=== PATIENT | male | born 1925 | race Caucasian/White ===

== ENCOUNTER 2017-03-25 23:56 | Emergency (ER) | payer MEDICARE ==
[~2017-03-25] VITALS: Ht 180.3 cm; Wt 77.3 kg
[2017-03-26 00:04] VITALS: BP 137/58; PULSE 69; RESP 23; O2SAT 100
--- NOTE | 2017-03-26 00:16 | ED.REPORT ---
HPI-Hip/Pelvis Prob/Inj Date of Service Mar 26, 2017 ED Provider: Ilia Lauren MD An 89 year old male with a history of hypertension and diabetes is brought to the ED via EMS due to right hip pain. The pt fell in the house this morning and again later this evening. He did not hit his head and denies loss of consciousness. The pt began complaining of right hip pain after the second fall , leading his family to be concerned about a fractured or dislocated hip. Nursing Notes Stated Complaint: GLF Chief Complaint: Extremity Trauma Nursing Notes Reviewed: Yes Allergies: Uncoded Allergies: PCN (Allergy, Unknown, 03/26/17) General Time Seen by Provider: 00:16 Chief Complaint Hip pain right Hx Obtained From: Patient, Other family..., EMS Arrived By: Ambulance Onset Occurred: 1 - 4 hours ago Symptom Duration: Since onset Recent Healthcare: No recent hospitalization, Recent doctor visit Similar Sx Previous: No Past Medical History Past Medical History hypertension constipation diabetes Past Surgical History none reported Smoking History Unknown if Ever Smoker Social History Other Social History: Good social support Ambulatory Status Cane Review of Systems Musculoskeletal: Reports: Joint pain (right hip) Skin: Denies Rash Neurologic: Denies: Change LOC Complete sys rev & neg: except as marked. Respiratory: Denies: Non-productive cough, Shortness of breath Cardiovascular: Denies: Chest pain GI: Denies: Abdominal pain Physical Exam Initial Vital Signs Vital Signs (First) Date Time Temp Pulse Resp B/P Pulse Ox O2 Delivery O2 Flow Rate FiO2 03/26/17 00:04 36.8 69 23 137/58 100 Room Air Initial VS: Reviewed Lower Extremity / Pelvis / MS: Atraumatic, Full range of motion good range of motion of right hip with minimal resistance to flexion and extension tender over lateral trochanter contusion 2+ edema bilaterally, chronic General/Constitutional: Awake, Alert mildly confused Head / Eyes: Atraumatic, Normocephalic, PERRL, EOMI Neck: Atraumatic, Supple, Full range of motion Respiratory / Chest: Atraumatic, Breath sounds NL, Breath sounds = bilat, No respiratory distress Cardiovascular: Heart rate NL, Regular rhythm, Heart sounds NL Back: Atraumatic, Full range of motion Skin: Atraumatic, Color NL, No rash, Warm, Dry Neurologic Neurologic: Oriented X3, Speech NL, No motor deficits, No sensory deficits ENT: Atraumatic, Airway patent, Mucous membranes moist Upper Extremity / MS: Atraumatic, Full range of motion Psychiatric: Affect NL, Mood NL Interpretation & Diagnostics Interpretation & Diagnostics: Hip/Pelvis X-Ray: no fracture no acute findings Lab Results Interpretation Test 03/26/17 00:00 Hold Purple Top Tube Received (Received) Hold Blue Top Tube Received (Received) Hold [place] Top Tube Received (Received) Re-Eval/Medical Decision Med Decision/Clinical Course 89-year-old presents after a couple of low level falls at home. Initially he had no complaints, but later complained of right hip pain. Exam is baseline unremarkable with good range good rotation and minimal apparent pain. He seems to be tender over the trochanter. X-rays are negative for fracture. He is up and walking with a walker and appears to be at baseline as far as gait. Discharged now in stable condition for follow-up with PCP. Source of Hx: Old records Re-Evaluation/Progress : Time of Eval: 01:20 Patient Status: Condition improved Re-Evaluation/Progress Note: Pt rechecked, who has passed his road test. The diagnosis and plan for discharge are discussed. The pt understands and agrees with the plan. All questions are addressed at this time. Counseled Regarding: Diagnosis, Lab results, Need for follow-up, When/why to return to ED Discharge & Departure Impression: Primary Impression: Contusion, hip Encounter type: initial encounter Laterality: right Qualified Code: S70.01XA - Contusion of right hip, initial encounter Disposition: Home Discharge Condition All VS Reviewed: Yes Condition: Stable Patient Instructions: Contusions in Adults (ED) Additional Instructions: Encourage use of his walker or cane or walking sticks at all times. Follow-up with your doctor in the office. Return if any immediate issues over the weekend. Tylenol as needed for pain. Referrals: Dallin Manning MD (PCP) Scribe Attestation Portions of this note were transcribed by Jadyn Menchaca. I, Dr. Lauren personally performed the history, physical exam and medical decision-making; I reviewed and confirmed the accuracy of the information in the transcribed note. Signed by: Timbo Mcqueen, 03/26/2017 and 0135. copies to: Dallin Manning MD, Christopher W MD Mar 26, 2017 00:16 JADYN MENCHACA Mar 26, 2017 01:12
[2017-03-26 01:25] VITALS: BP 147/67; PULSE 68; RESP 18; O2SAT 98
--- NOTE | 2017-03-26 12:03 | DRSVH ---
PROCEDURE: X-RAY PELVIS W/LAT HIP (RT) ([id number]) INDICATIONS: fall, pain TECHNIQUE: AP pelvis with lateral view(s) of the right hip(s). COMPARISON: None. FINDINGS: Bones: No fractures or dislocations. Pelvic ring appears intact. No suspicious bony lesions. 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 Soft tissues: The visualized bowel gas pattern is normal. No suspicious soft tissue calcifications. Surgical clips in scrotum. IMPRESSION: No fracture or dislocation. If clinical symptoms persist or clinical suspicion for patho logy is high, a repeat examination in 7-10 days, or advanced imaging such as CT or MRI is suggested f or further evaluation. Dictated by: Maggie Zimmer M.D. on 03/26/2017 at 11:59 Approved by: Maggie Zimmer M.D. on 03/26/2017 at 12:00
== END 2017-03-26 01:25 | disposition home or self-care (01) ==
LOC: SED 23:56
DX: S70.01XA Contusion of right hip, initial encounter (principal); W18.39XA Other fall on same level, initial encounter; Y93.01 Activity, walking, marching and hiking; Y92.019 Unspecified place in single-family (private) house as the place of occurrence of the external cause; Y99.8 Other external cause status; I10 Essential (primary) hypertension; E11.9 Type 2 diabetes mellitus without complications